=== PATIENT | male | born 1995 | race African-American/Black ===

== ENCOUNTER 2019-02-08 14:18 | Emergency (ER) | payer OTHER ==
[~2019-02-08] VITALS: Ht 180.3 cm; Wt 75.0 kg
[2019-02-08] MEDS ORDERED: IBUPROFEN 600 MG TAB PO ONE (15:30)
--- NOTE | 2019-02-08 15:51 | REP ---
CT thoracic spine without contrast. HISTORY: Bone tenderness COMPARISON : None There is no acute fracture or subluxation. There is no disc bulge or herniation. The spinal canal and neural foramina are patent. The intervertebral discs and vertebral bodies are normal in height. IMPRESSION: There is no acute fracture or subluxation. Electronically Signed by Eris Mays MD 02/08/2019 03:43 P
--- NOTE | 2019-02-08 16:35 | REP ---
CT cervical spine without contrast HISTORY: No tenderness COMPARISON: None There is no acute fracture or subluxation. There is no disc bulge or herniation. The spinal canal and neural foramina are patent. The intervertebral discs and vertebral bodies are normal in height. There is loss of the normal lordotic curve. IMPRESSION: There is no acute fracture or subluxation. Electronically Signed by Eris Mays MD 02/08/2019 04:27 P
[2019-02-08] MEDS ORDERED: IBUP-1022 PO (16:38)
[2019-02-08] MEDS ORDERED: CYCL10TA PO (16:38)
[2019-02-08 16:50] VITALS: BP 142/75
== END 2019-02-08 16:51 | disposition home or self-care (01) ==
LOC: M ED 14:18
DX: M54.12 Radiculopathy, cervical region (principal); F41.9 Anxiety disorder, unspecified; F17.210 Nicotine dependence, cigarettes, uncomplicated